=== PATIENT | female | born 1975 | race Caucasian/White ===

== ENCOUNTER 2020-08-09 10:56 | Outpatient (CLI) | payer OTHER, SELFPAY | END 2020-08-09 20:18 | disposition home or self-care (01) | LOC: SLB 10:56 | PROVIDERS: ATTEND Orthopaedic Surgery | DX: Z01.812 Encounter for preprocedural laboratory examination (principal); Z20.828 Contact with and (suspected) exposure to other viral communicable diseases; M67.442 Ganglion, left hand | CPT/HCPCS: 36415 ==